=== PATIENT | male | born 1945 | race Caucasian/White ===

== ENCOUNTER → 2017-01-19 | Outpatient (CLI) | payer MEDICARE ==
[2017-01-19 09:57] LABS: BASOPHILS % (AUTO) 0 % (0-2); EOSINOPHILS # (AUTO) 0.2 10^3uL; EOSINOPHILS % (AUTO) 4 % (0-4); LYMPHOCYTES # (AUTO) 1.7 X10^3; MEAN CORPUSCULAR HEMOGLOBIN 32.3 PG (26.0-34.0); MEAN CORPUSCULAR HGB CONC 35.5 g/dL (31.0-37.0); MEAN CORPUSCULAR VOLUME 91 FL (80-100); MONOCYTES # (AUTO) 0.5 X10^3; MONOCYTES % (AUTO) 11 % (3-11); NEUTROPHILS # (AUTO) 2.2 X10^3; NEUTROPHILS % (AUTO) 47 % (51-67); PLATELET COUNT 217 10^3uL (150-450); WHITE BLOOD COUNT 4.62 10^3uL (4.0-11.0)
[2017-01-19 10:57] LABS: ALBUMIN 4.1 g/dL (3.4-5.0); ANION GAP 14.6 MEQ/L (3-15); CALCULATED IONIZED CALCIUM 4.1 mg/dL (3.8-4.6)
== END ==
LOC: LAB 09:14
PROVIDERS: ATTEND Internal Medicine
DX: Z00.00 Encounter for general adult medical examination without abnormal findings (principal); J30.2 Other seasonal allergic rhinitis; E78.1 Pure hyperglyceridemia; E04.2 Nontoxic multinodular goiter; Z12.5 Encounter for screening for malignant neoplasm of prostate
CPT/HCPCS: 36415; 80053; 80061; 84443; 85025; G0103; 84153

== ENCOUNTER → 2017-01-26 | Outpatient (REF) | payer MEDICARE | LOC: LAB 10:29 | PROVIDERS: ATTEND Internal Medicine | DX: Z11.59 Encounter for screening for other viral diseases (principal) | CPT/HCPCS: 86803 ==

== ENCOUNTER → 2017-02-20 | Outpatient (CLI) | payer MEDICARE ==
--- NOTE | 2017-02-20 14:01 | Diagnostic Imaging Report ---
PROCEDURE: US Thyroid. TECHNIQUE: Multiple real-time grayscale images were obtained of the thyroid in various projections. INDICATION: Thyromegaly, history of left lobectomy. FINDINGS: Left lobe is surgically absent. No abnormal tissue within the operative bed. The isthmus measures 4-5 mm thick mildly heterogeneous. The right thyroid lobe is enlarged measuring 6.3 x 3.6 x 2.9 cm and is dominated by a large vascularized heterogeneous solid mass at its [id number] third measuring 3.7 x 4.1 x 3.3 cm. Owing to its size and solid character if priors are not available to confirm its long-term stability, I would suggest tissue sampling. IMPRESSION: Absent left lobe. Dominant solid right lobe mass 4.1 cm heterogeneous and vascularized, neoplasm could not be excluded. If priors cannot confirm its long-term stability, sonographic needle aspiration may be of benefit. Dictated by: Dictated on workstation # [id number]
== END ==
LOC: RAD 09:25
PROVIDERS: ATTEND Internal Medicine
DX: E07.89 Other specified disorders of thyroid (principal)
CPT/HCPCS: 76536